=== PATIENT | male | born 1945 | race Caucasian/White ===

== ENCOUNTER 2017-04-01 06:31 | Day surgery (SDC) | payer MEDICARE, BC ==
[2017-04-01] MEDS ORDERED: Bupivacaine 0.5%/EPINEPHrine 1:200,000 50 ML MDV ONE (06:39)
[2017-04-01] MEDS ORDERED: Lidocaine 1% 50 ML MDV ONE (06:39)
[2017-04-01] MEDS ORDERED: metroNIDAZOLE/Normal Saline 500 MG in Premix Bag 1 BAG IV ONE (07:30)
[2017-04-01] MEDS ORDERED: ceFAZolin 2 GM in Premix Bag 1 BAG IV ONE (07:30)
[2017-04-01] MEDS ORDERED: Sodium Chloride 0.9% 1,000 ML IV SCH (07:30)
[2017-04-01] MEDS ORDERED: fentaNYL 250 MCG/5 ML SDV ONE (07:34)
[2017-04-01] MEDS ORDERED: Propofol 200 MG/20 ML SDV ONE (07:34)
[2017-04-01] MEDS ORDERED: Dexamethasone 4 MG/ML SDV ONE (07:34)
[2017-04-01] MEDS ORDERED: Neostigmine Methylsulfate 1 MG/ML 5 ML Syringe ONE (07:34)
[2017-04-01] MEDS ORDERED: Ondansetron 4 MG/2 ML SDV ONE (07:34)
[2017-04-01] MEDS ORDERED: Rocuronium 50 MG/5 ML Vial ONE (07:34)
[2017-04-01] MEDS ORDERED: Lidocaine 1% 2 ML ONE (07:39)
[2017-04-01] MEDS ORDERED: Ketorolac 60 MG/2 ML SDV ONE (08:14)
[2017-04-01] MEDS ORDERED: hydrOXYzine HCl 50 MG/ML SDV IM ONE (09:17)
[2017-04-01] MEDS ORDERED: Acetaminophen/HYDROcodone 325-5 MG Tab PO ONE (10:35)
[2017-04-01 11:42] VITALS: BP 118/50
--- NOTE | 2017-04-02 08:07 | OR ---
DATE OF PROCEDURE: 04/01/2017 PROCEDURES PERFORMED: Laparoscopic total extraperitoneal repair of hernia, right, incarcerated. COMPLICATIONS: None. PROGRAM SUPPORT ASSISTANT: None. ANESTHESIA: General. RISKS: Risks, benefits, alternatives, and limitations including, but not limited to infection, bleeding, injury to the vascular structures of the testicle and other risks were explained, and the patient wished to proceed. DESCRIPTION OF PROCEDURE: The patient was placed in supine position. A linear infraumbilical incision was made, and this was carried down with electrocautery to the external fascia, which was then opened. The rectus muscles were then retracted laterally and medially. Pean was used to create a potential space, and the balloon was introduced. The balloon was subsequently insufflated without difficulty. After this, the retaining balloon was insufflated, and the procedure was commenced. Two 5-mm ports were also entered under direct visualization. The patient was noted to have dense adhesions consistent with his previous hernia repair. It was quite significant and, in fact, the next 30 minutes would be consumed by careful dissection of this area. The patient was noted to have significant inflammation also in this area associated with the scar tissue, and the hernia was found to be incarcerated. After the adhesions were reduced, the hernia was also reduced. This was found to be an indirect hernia. There was no evidence of a pantaloon hernia. A small defect was created in the peritoneum. This was attempted to be clipped, but a piece of Prolene mesh would be placed over this. The area was inspected for bleeding, which there was none. The hernia was then repaired with a standard Vicryl-type mesh. This was rolled and then subsequently unrolled with good coverage of the entire hernia spot. This was then desufflated. The wounds were closed with 3-0 Vicryl, except for the midline fascia which was closed with #0 Vicryl. The area was thoroughly irrigated and closed with Dermabond. The patient tolerated the procedure well. Jorge Alberto Rivas MD /[id number]
== END 2017-04-01 12:32 | disposition home or self-care (01) ==
LOC: JP.SDS 06:31
PROVIDERS: ATTEND Surgery
DX: K40.30 Unilateral inguinal hernia, with obstruction, without gangrene, not specified as recurrent (principal); I10 Essential (primary) hypertension; G47.33 Obstructive sleep apnea (adult) (pediatric); K21.9 Gastro-esophageal reflux disease without esophagitis
CPT/HCPCS: 49650; A9270; C1781; J0690; J1100; J1885; J2405; J2704; J3010; J3410; J7040; J7120

== ENCOUNTER 2020-12-08 08:29 | Day surgery (SDC) | payer MEDICARE ==
[~2020-12-08 08:29] MED LIST: Sodium Chloride 0.9% 1,000 ML IV SCH
[2020-12-08] MEDS ORDERED: Dextrose 5%-Lactated Ringers 1,000 ML IV SCH (09:15)
[2020-12-08] MEDS ORDERED: fentaNYL 100 MCG/2 ML SDV ONE (09:21)
[2020-12-08] MEDS ORDERED: Midazolam 1 MG/ML 2 ML SDV ONE (09:21)
[2020-12-08] MEDS ORDERED: Propofol 200 MG/20 ML SDV ONE (09:21)
[2020-12-08 11:43] VITALS: BP 106/75; PULSE 66
--- NOTE | 2020-12-17 12:37 | OR ---
DATE OF PROCEDURE: 12/08/2020 SURGEON: Ez Zavala MD PREOPERATIVE DIAGNOSIS: History of colon polyps. POSTOPERATIVE DIAGNOSIS: Normal colonoscopic examination. OPERATIVE PROCEDURE: Flexible colonoscopy. ANESTHESIA: IV sedation. INDICATION FOR PROCEDURE: A 75-year-old male presenting with history of colon polyps after polyps removed in 2018. He is here for followup colonoscopy with biopsies and/or polypectomy as indicated. Potential risks including bleeding and perforation were discussed, and the patient wishes to proceed. DETAILS OF PROCEDURE: The patient was taken to the operating room and placed in a left lateral decubitus position. IV sedation was administered after which the initial digital rectal exam was performed and was unremarkable. Colonoscope was then passed into the rectum with retroflexion revealing uncomplicated hemorrhoidal columns. The scope was eventually passed to the cecum. The prep was quite good with only a small amount of liquid stool that is present to that level. No pathology was seen. There were no areas of diverticulosis. No areas of colitis. No polyps or other signs of neoplasia. The scope was then withdrawn, the above findings reconfirmed, and the procedure concluded. The patient was taken to the recovery room in satisfactory condition. Recommendation would be to repeat the colonoscopy in 5 years if his health remains satisfactory at that point. Ez Zavala MD /[id number]
== END 2020-12-08 11:59 | disposition home or self-care (01) ==
LOC: JP.SDS 08:29
PROVIDERS: ATTEND Surgery
DX: Z12.11 Encounter for screening for malignant neoplasm of colon (principal); K64.9 Unspecified hemorrhoids; I10 Essential (primary) hypertension; Z86.010 Personal history of colon polyps
CPT/HCPCS: J2250; J2704; J3010; J7121